=== PATIENT | female | born 1950 | race Caucasian/White ===

== ENCOUNTER 2016-12-31 07:23 | Emergency (ER) | payer MEDICARE ==
[2016-12-31 07:33] VITALS: BP 149/73
--- NOTE | 2016-12-31 08:25 | UC ---
Respiratory Complaint HPI - HPI Summary HPI Summary: 66 y/o female presents to the urgent care c/o her asthma has been triggered by allergies this morning. Pt reports she did a nebulizer treatment about 2 hour ago and she feels better. Pt states she feels w/ nasal congestions and clear discharge, mild SOB, watery eyes. She was Dx with asthma last year and only has 1 nebulizer dose. Pt denies fever, cough, chest pain, N/V/D. Pt has not other complains. - History of Current Complaint Chief Complaint: UCAsthma Stated Complaint: ASTHMA Time Seen by Provider: 12/31/16 08:05 Hx Obtained From: Patient ?: No Onset/Duration: Gradual Onset, Lasting Hours, Still Present Timing: Constant Severity Initially: Mild Severity Currently: Moderate Pain Intensity: 0 Pain Scale Used: 0-10 Numeric Aggravating Factors: Allergens Alleviating Factors: Bronchodilator Associated Signs And Symptoms: Positive: Dyspnea, Wheezing, Nasal Congestion. Negative: Fever Related History: Seasonal Allergies - Risk Factors Pulmonary Embolism Risk Factors: Negative Cardiac Risk Factors: Negative Pseudomonas Risk Factors: Negative Tuberculosis Risk Factors: Negative - Allergies/Home Medications Allergies/Adverse Reactions: Allergies Allergy/AdvReac Type Severity Reaction Status Date / Time Oxaprozin [From Daypro] Allergy Unknown Verified 08/02/13 13:25 Reaction Details PMH/Surg Hx/FS Hx/Imm Hx Previously Healthy: Yes Cardiovascular History: Hypertension Respiratory History: Asthma - Surgical History Surgical History: Yes Surgery Procedure, Year, and Place: hyster - Family History Known Family History: Positive: None - Social History Occupation: Retired Lives: With Family Alcohol Use: None Substance Use Type: None Smoking Status (MU): Heavy Every Day Tobacco Smoker Type: Cigarettes Review of Systems Constitutional: Negative Skin: Negative Eyes: Negative ENT: Nasal Discharge - clear, Sinus Congestion Respiratory: Shortness Of Breath Cardiovascular: Negative Gastrointestinal: Negative Genitourinary: Negative Motor: Negative Neurovascular: Negative Musculoskeletal: Negative Neurological: Negative Psychological: Negative All Other Systems Reviewed And Are Negative: Yes Physical Exam Triage Information Reviewed: Yes Appearance: Well-Appearing, No Pain Distress, Well-Nourished, Thin Vital Signs: Initial Vital Signs Temp 97.9 F 12/31/16 07:30 Pulse 60 12/31/16 07:30 Resp 20 12/31/16 07:30 BP 149/73 12/31/16 07:30 Pulse Ox 100 12/31/16 07:30 Vital Signs Reviewed: Yes Eye Exam: Normal Eyes: Positive: Conjunctiva Clear - JOSUE, EOMI, ENT: Positive: Normal ENT inspection, Hearing grossly normal, Pharynx normal, Nasal congestion - w/ cedematous and erythematous nasal mucosa, Nasal drainage - clear, TMs normal Dental Exam: Normal Neck exam: Normal Neck: Positive: Supple, Nontender, No Lymphadenopathy Respiratory Exam: Normal Respiratory: Positive: Chest non-tender, Lungs clear, Normal breath sounds, Wheezing - Mild wheezing in the left upper lung field Cardiovascular Exam: Normal Cardiovascular: Positive: RRR, No Murmur, Pulses Normal Abdominal Exam: Normal Abdomen Description: Positive: Nontender, No Organomegaly, Soft. Negative: CVA Tenderness (R), CVA Tenderness (L) Bowel Sounds: Positive: Present Musculoskeletal Exam: Normal Musculoskeletal: Positive: Strength Intact, ROM Intact, No Edema Neurological Exam: Normal Psychological Exam: Normal Skin Exam: Normal UC Diagnostic Evaluation - Laboratory O2 Sat by Pulse Oximetry: 100 Respiratory Course/Dx - Course Course Of Treatment: 66 y/o female presents to the urgent care c/o her asthma has been triggered by allergies this morning. Pt reports she did a nebulizer treatment about 2 hour ago and she feels better. Pt states she feels w/ nasal congestions and clear discharge, mild SOB, watery eyes. She was Dx with asthma last year and only has 1 nebulizer dose. Pt denies fever, cough, chest pain, N /V/D. Hx obtained. PE:WNL. Mild wheezing in the left upper lung field. Pt did a nebulizer treatment about 2 hours ago. Pt D/C home w/ Prednisone taper dose, Loratadine and flonase for her allergies. Pt's BP: 149/73 Advised to decrease salt intake and monitor her BP and f/u with her PCP for furhter evaluation and treatment in her HTN and asthma. Pt understood and agreed. left the clinic ambulating. - Differential Dx/Diagnosis Differential Diagnosis/HQI/PQRI: Asthma, Bronchitis, Lower Resp Infection, Sinusitis, Other - Asthma exacerbation, rhinosinusiits Provider Diagnoses: 1-Asthma exacerbation. 2-Uncontrolled HTN Discharge - Discharge Plan Condition: Stable Disposition: HOME Prescriptions: Albuterol 2.5MG/3ML (0.083%)* [Ventolin 2.5 MG/3 ML NEB.BERNARDO*] 2.5 mg INH Q4H #1 paola Fluticasone Furoate-Vilanterol [Breo Ellipta 200-25 Mcg/INH] 1 inh IN DAILY #1 bottle Loratadine & Pseudoephedrine [Loratadine/Pseudoephedrin 10-240 mg] 1 tab PO Q24HR #30 tab predniSONE TAB* [Deltasone TAB*] 20 mg PO DAILY #11 tab Patient Education Materials: Asthma (ED), Low Sodium Diet (ED) Referrals: Kamini Alba MD [Primary Care Provider] - 1 Week Additional Instructions: Please take medications as directed and increase fluid intake and rest, decrease salt intake. Avoid allergens. If SOB and wheezing increases pleas go to the ER immediately. Otherwise f/u with your PCP for further evaluation and treatment of your asthma and HTN
== END 2016-12-31 08:32 | disposition home or self-care (01) ==
LOC: UCEAST 07:23
DX: J45.901 Unspecified asthma with (acute) exacerbation (principal); I10 Essential (primary) hypertension; F17.210 Nicotine dependence, cigarettes, uncomplicated
CPT/HCPCS: 99212; G0463

== ENCOUNTER 2022-03-06 22:37 | Inpatient (IN) ==
[2022-03-06] MEDS ORDERED: Albuterol/Ipratropium NEB.SOL (2.5/0.5 MG) 3 ML NEB.SOLN INH ONE (23:04)
[2022-03-07 00:13] LABS: ABS Lymphocytes 0.5 10^3/ul (1.0-4.8); ABS Monocytes 0.1 10^3/ul (0-0.8); ABS Neutrophils 10.9 10^3/ul (1.5-7.7); Eosinophil % 0.2 %; Hematocrit 40 % (35-47); Hemoglobin 13.4 g/dL (12.0-16.0); Lymphocyte % 4.2 %; Mean Corpuscular HGB Conc 34 g/dL (31-36); Mean Corpuscular Hemoglobin 33 pg (27-31); Mean Corpuscular Volume 97 fL (80-97); Mean Platelet Volume 7.6 fL (7.4-10.4); Nucleated Red Blood Cells % 0.1; Platelet Count 330 10^3/uL (150-450); Red Blood Count 4.07 10^6 /uL (3.70-4.87); Red Cell Distribution Width 13 % (10-15); White Blood Count 11.6 10^3/uL (3.5-10.8)
[2022-03-07 00:25] LABS: INR 0.94 (0.89-1.11)
[2022-03-07 00:32] LABS: Albumin 4.3 g/dL (3.2-5.2); C Reactive Protein 4.26 mg/L (<8.01); Calcium 9.5 mg/dL (8.6-10.3); Globulin 2.2 g/dL (2-4); Potassium 4.4 mmol/L (3.5-5.0); Total Bilirubin 0.4 mg/dL (0.2-1.0); Total Protein 6.5 g/dL (6.4-8.9); eGFR CKD-EPI 93.6 (>60)
[2022-03-07] MEDS ORDERED: Heparin DRIP 25,000 UNITS BAG 25,000 UNITS/500 ML BAG IV SCH (01:15)
[2022-03-07] MEDS ORDERED: Furosemide 40 mg/4 ml IV VIAL IV SLOW PU ONE (01:24)
[2022-03-07 01:28] LABS: HDL Cholesterol 51.7 mg/dL
[2022-03-07] MEDS ORDERED: Albuterol HFA INHALER 8 gm MDI INH PRN (01:35)
[2022-03-07] MEDS ORDERED: Albuterol 2.5mg/3 ml (0.083%) NEB.SOLN INH PRN (01:35)
[2022-03-07 02:09] LABS: High Sensitivity Troponin 1 Hr 797 pg/mL (<15)
[2022-03-07] MEDS: Heparin 5000 UNITS/ML 1 mL VIAL IV SCH ×2 (02:27→09:02)
[2022-03-07] MEDS: HYDROcodone/Acetamin 10/325 TAB (NF) PO PRN ×3 (04:21→18:10)
[2022-03-07 04:53] LABS: Urine Appearance Clear; Urine Bilirubin Negative (Negative); Urine Blood Negative (Negative); Urine Color Straw; Urine Glucose Negative (Negative); Urine Ketones Negative (Negative); Urine Nitrite Negative (Negative); Urine Protein Negative (Negative); Urine Specific Gravity 1.005 (1.002-1.030); Urine Urobilinogen Negative (Negative)
[2022-03-07 05:44] LABS: ABS Lymphocytes 0.8 10^3/ul (1.0-4.8); ABS Monocytes 0.4 10^3/ul (0-0.8); ABS Neutrophils 12.3 10^3/ul (1.5-7.7); Eosinophil % 0.2 %; Hematocrit 43 % (35-47); Hemoglobin 14.3 g/dL (12.0-16.0); Lymphocyte % 6.1 %; Mean Corpuscular HGB Conc 34 g/dL (31-36); Mean Corpuscular Hemoglobin 33 pg (27-31); Mean Corpuscular Volume 97 fL (80-97); Mean Platelet Volume 7.4 fL (7.4-10.4); Platelet Count 381 10^3/uL (150-450); Red Cell Distribution Width 13 % (10-15); White Blood Count 13.7 10^3/uL (3.5-10.8)
[2022-03-07 06:04] LABS: Calcium 9.8 mg/dL (8.6-10.3); Potassium 3.8 mmol/L (3.5-5.0); eGFR CKD-EPI 88.4 (>60)
[2022-03-07] MEDS ORDERED: Furosemide 20 mg/2 ml IV VIAL IV ONE (09:59)
[2022-03-07] MEDS ORDERED: Potassium Chlor 20 meq TAB.ER PO ONE (09:59)
[2022-03-07 10:22] LABS: Magnesium 1.7 mg/dL (1.9-2.7)
[2022-03-07] MEDS ORDERED: Sulfur Hexaflouride MICROSPHR 25 MG VIAL ONE (10:41)
[2022-03-07] MEDS: DULoxetine DR 60 mg CAP PO SCH (11:06)
[2022-03-07] MEDS ORDERED: NS 0.9% 1000 ml BAG 1,000 ML IV SCH (11:30)
[2022-03-07] MEDS ORDERED: nitroGLYCERIN DRIP 25,000 MCG/250 ML BTL ONE (12:48)
[2022-03-07] MEDS ORDERED: Heparin 1,000 UNIT/ML 10 ml (10,000 UNITS) CATHLAB/DIALYSIS ONE (12:48)
[2022-03-07] MEDS ORDERED: VERAPAMIL 2.5 MG/ML 2 ML VIAL ** 5 mg/2 ml ONE (12:48)
[2022-03-07] MEDS ORDERED: Midazolam 5 mg/5 ml VIAL 1 mg/ml 5 ml VIAL (5 mg) ONE (12:48)
[2022-03-07] MEDS ORDERED: Heparin 2 UNITS/ML 1000 mls 2,000 ML IV ONE (12:48)
[2022-03-07] MEDS ORDERED: fentaNYL 100 mcg/2 ml 50 MCG/ML VIAL ONE (12:48)
[2022-03-07] MEDS ORDERED: Lidocaine 1% MPF 5 ML VIAL ONE (12:49)
[2022-03-07] MEDS ORDERED: Iohexol 350 (CONTRAST) 100 ML PAK IV ONE (12:49)
[2022-03-08] MEDS: HYDROcodone/Acetamin 10/325 TAB (NF) PO PRN ×4 (00:15→18:40)
[2022-03-08 05:55] LABS: Calcium 9.2 mg/dL (8.6-10.3); Potassium 4.4 mmol/L (3.5-5.0); eGFR CKD-EPI 91.4 (>60)
[2022-03-08] MEDS ORDERED: Furosemide 20 mg/2 ml IV VIAL IV ONE (06:00)
[2022-03-08] MEDS: SPIRIVA Respimat (tiotropium) 2.5 mcg/inh Inhaler INH SCH ×2 (06:27→07:49)
[2022-03-08] MEDS: DULoxetine DR 60 mg CAP PO SCH (08:58)
[2022-03-08] MEDS ORDERED: Influenza vaccine *QUAD* *2022-23* 0.5 ML SYRINGE IM ONE (09:00)
[2022-03-08 10:47] LABS: Magnesium 1.7 mg/dL (1.9-2.7)
[2022-03-08] MEDS ORDERED: Magnesium Sulfate 2 gm BAG 2 GM/50 ML BAG IVPB ONE (10:52)
[2022-03-08 11:02] LABS: Venous Bicarbonate HCO3 28.4 mmol/L (24-28)
[2022-03-08 11:06] LABS: ABS Basophils 0.1 10^3/ul (0-0.2); ABS Monocytes 1.2 10^3/ul (0-0.8); ABS Neutrophils 13.5 10^3/ul (1.5-7.7); Eosinophil % 0.2 %; Hematocrit 42 % (35-47); Hemoglobin 14.1 g/dL (12.0-16.0); Mean Corpuscular HGB Conc 33 g/dL (31-36); Mean Corpuscular Hemoglobin 32 pg (27-31); Mean Corpuscular Volume 96 fL (80-97); Mean Platelet Volume 7.6 fL (7.4-10.4); Platelet Count 370 10^3/uL (150-450); Red Blood Count 4.39 10^6 /uL (3.70-4.87); Red Cell Distribution Width 13 % (10-15); White Blood Count 16.9 10^3/uL (3.5-10.8)
[2022-03-08] MEDS ORDERED: Calcium Carb (TUMS) 500 mg CHEW TAB PO ONE (20:59)
[2022-03-09] MEDS: HYDROcodone/Acetamin 10/325 TAB (NF) PO PRN ×4 (01:50→20:58)
[2022-03-09] MEDS ORDERED: Magnesium Sulfate 2 gm BAG 2 GM/50 ML BAG IVPB ONE (06:54)
[2022-03-09 06:58] LABS: ABS Basophils 0.1 10^3/ul (0-0.2); ABS Lymphocytes 1.9 10^3/ul (1.0-4.8); ABS Monocytes 1.4 10^3/ul (0-0.8); ABS Neutrophils 14.1 10^3/ul (1.5-7.7); Hematocrit 41 % (35-47); Lymphocyte % 10.7 %; Mean Corpuscular HGB Conc 34 g/dL (31-36); Mean Corpuscular Hemoglobin 33 pg (27-31); Mean Corpuscular Volume 96 fL (80-97); Mean Platelet Volume 7.5 fL (7.4-10.4); Platelet Count 345 10^3/uL (150-450); Red Blood Count 4.26 10^6 /uL (3.70-4.87); Red Cell Distribution Width 14 % (10-15); White Blood Count 17.3 10^3/uL (3.5-10.8)
[2022-03-09 07:41] LABS: Calcium 9.7 mg/dL (8.6-10.3); Potassium 4.3 mmol/L (3.5-5.0)
[2022-03-09] MEDS: Albuterol/Ipratropium NEB.SOL (2.5/0.5 MG) 3 ML NEB.SOLN INH SCH ×3 (09:06→19:44)
[2022-03-09] MEDS: SPIRIVA Respimat (tiotropium) 2.5 mcg/inh Inhaler INH SCH (09:10)
[2022-03-09] MEDS: DULoxetine DR 60 mg CAP PO SCH (09:31)
[2022-03-09] MEDS ORDERED: Enoxaparin 40 MG/0.4 ML SYR SUBCUT SCH (20:00)
[2022-03-10] MEDS: Albuterol/Ipratropium NEB.SOL (2.5/0.5 MG) 3 ML NEB.SOLN INH SCH ×2 (01:35→06:56)
[2022-03-10] MEDS: HYDROcodone/Acetamin 10/325 TAB (NF) PO PRN ×3 (01:57→15:21)
[2022-03-10] MEDS: SPIRIVA Respimat (tiotropium) 2.5 mcg/inh Inhaler INH SCH (07:26)
[2022-03-10] MEDS: DULoxetine DR 60 mg CAP PO SCH (08:50)
[2022-03-10 15:24] VITALS: BP 116/69
== END 2022-03-10 17:41 | disposition home or self-care (01) | DRG 286 ==
LOC: ED 22:37 → SUATTDRO 03-07 01:31 → EDHOLD 03-07 01:31 → MEDTELE 03-07 16:14
PROVIDERS: ADMIT Student in an Organized Health Care Education/Training Program; ATTEND Internal Medicine